=== PATIENT | female | born 1925 | race Caucasian/White ===

== ENCOUNTER → 2016-09-24 | Outpatient (CLI) | payer MEDICARE | END | disposition short-term general hospital (02) | LOC: CLRHEU 13:18 | DX: M35.3 Polymyalgia rheumatica (principal) ==

== ENCOUNTER → 2016-12-09 | Outpatient (CLI) | payer MEDICARE | END | disposition short-term general hospital (02) | LOC: CLRHEU 10:58 | DX: M35.3 Polymyalgia rheumatica (principal); M19.90 Unspecified osteoarthritis, unspecified site; R79.82 Elevated C-reactive protein (CRP); R70.0 Elevated erythrocyte sedimentation rate ==